=== PATIENT | male | born 1995 | race Two or more races ===

== ENCOUNTER 2022-03-28 12:52 | Emergency (ER) | payer SELFPAY ==
[~2022-03-28] VITALS: Ht 177.8 cm; Wt 90.7 kg
--- NOTE | 2022-03-28 13:05 | NUR ---
[id number] [facility] C/O " BODY PAIN FOREVER" BG 165. PT PLACED IN BED AND MONITOR. VSS. AWAITING MD ORDERS.
--- NOTE | 2022-03-28 14:00 | NUR ---
PT APPEARS TO BE SLEEPING, RESTING COMFORTABLY IN BED. VITAL SIGNS STABLE.
[2022-03-28] MEDS ORDERED: IBUPROFEN 600 MG TABLET PO ONE (14:30)
[2022-03-28 15:11] LABS: BASOPHILS % (AUTO) 0.5 % (0.0-2.0); EOSINOPHILS % (AUTO) 0.4 % (0.0-6.0); HEMATOCRIT 41 % (39-51); HEMOGLOBIN 13.7 g/dL (13.5-17.5); LYMPHOCYTES # (AUTO) 1.4 K/uL (0.8-4.8); LYMPHOCYTES % (AUTO) 17.7 % (20.0-44.0); MEAN CORPUSCULAR HGB CONC 34 g/dl (31.0-36.0); MEAN CORPUSCULAR VOLUME 96 fL (80-96); MONOCYTES # (AUTO) 0.7 K/uL (0.1-1.30); MONOCYTES % (AUTO) 8.6 % (2.0-12.0); NEUTROPHILS # (AUTO) 5.6 K/uL (1.8-8.9); NEUTROPHILS % (AUTO) 72.8 % (43.0-81.0); PLATELET COUNT (AUTO) 393 K/uL (150-450); RED BLOOD CELL COUNT(AUTO) 4.23 MIL/uL (4.5-6.0); WHITE BLOOD COUNT (AUTO) 7.7 K/uL (4.3-11.0)
[2022-03-28 15:44] LABS: ALBUMIN 4.3 g/dL (3.4-5.0); CALCIUM, SERUM 9.1 mg/dL (8.5-10.1); POTASSIUM 4.2 mmol/L (3.5-5.1); TOTAL PROTEIN, SERUM 7.6 g/dL (6.4-8.2)
[2022-03-28] MEDS ORDERED: IBUPROFEN 600 MG TABLET ONE (15:46)
--- NOTE | 2022-03-28 18:10 | NUR ---
Patient discharged to home in stable condition. Written and verbal after care instructions given. Patient verbalizes understanding of instruction.
[2022-03-28 18:15] VITALS: BP 142/78
== END 2022-03-28 18:16 | disposition home or self-care (01) ==
LOC: ER 12:55
DX: R07.9 Chest pain, unspecified (principal); F15.90 Other stimulant use, unspecified, uncomplicated; M79.10 Myalgia, unspecified site; Z59.00 Homelessness unspecified
CPT/HCPCS: 36415; 71045-TC; 80053-TC; 84484-TC; 85025-TC